=== PATIENT | female | born 1990 | race Caucasian/White ===

== ENCOUNTER → 2019-08-03 10:50 | Outpatient (CLI) | payer BC, SELFPAY ==
--- NOTE | ~2019-08-03 | US_ITS ---
EXAMINATION: US pelvic complete w TV EXAM DATE: 08/03/2019 11:22 INDICATION: Dyspareunia. Painful intercourse, pressure. TECHNIQUE: Pelvic transabdominal and transvaginal sonogram was performed. There are multiple graysca le and Doppler images available for interpretation. There is no prior study for comparison. FINDINGS: Uterus measures 8.2 x 5.2 x 5.1 cm, and is morphologically normal. Endometrial stripe alverto sures 1.3 mm, within normal limits. There is no free pelvic fluid. Right adnexa: The ovary measures 2.4 x 1.8 x 2.6 cm and is morphologically normal. Ovarian vascular f low confirmed. Left adnexa: The ovary measures 3.4 x 2.2 x 3.2 cm and is morphologically normal. Ovarian vascular fl ow confirmed. IMPRESSION: 1. Unremarkable pelvic ultrasound exam. Reviewed, dictated and finalized at location A.
== END ==
PROVIDERS: Visit Provider Obstetrics & Gynecology
DX: N94.10 Unspecified dyspareunia (principal)
CPT/HCPCS: 76830; 76856

== ENCOUNTER 2020-07-03 21:32 | Inpatient (IN) | payer BC, SELFPAY ==
[2020-07-03 22:16] VITALS: BP 107/59; PULSE 91
[2020-07-03 22:31] VITALS: BP 107/63; PULSE 90
[2020-07-03 22:46] VITALS: BP 118/80; PULSE 87
[2020-07-03 23:00] VITALS: BMI 28.5
[2020-07-03 23:01] LABS: Basophils Percent Auto 0.2 % (0.2-1.2); Eosinophils Absolute Auto 0.1 K/mm3 (0-0.3); Eosinophils Percent Auto 0.6 % (0-4.4); Hematocrit 37.3 % (37.0-47.0); Hemoglobin 12.3 g/dL (12.0-15.0); Immature Granulocyte Absolute 0.11 K/mm3 (0.00-0.031); Immature Granulocyte Percent A 0.9 % (0-0.5); Lymphocytes Absolute Auto 2.18 K/mm3 (0.9-3.2); Lymphocytes Percent Auto 17.2 % (18.3-44.2); Mean Corpuscular Hemoglobin 30.8 pg (26-34); Mean Corpuscular Volume 93.5 fl (80-100); Mean Platelet Volume 12.3 fl (7.4-10.4); Monocytes Percent Auto 7.7 % (2.6-8.5); Neutrophils Absolute Auto 9.3 K/mm3 (1.3-6.7); Neutrophils Percent Auto 73.4 % (45.5-73.1); Platelet Count Result 167 k/mm3 (150-375); Red Blood Count 3.99 M/mm3 (4.2-5.4); Red Cell Distribution Width 12.3 % (11.5-14.5); White Blood Count 12.7 K/mm3 (4.5-10.0)
[2020-07-03 23:03] VITALS: TEMP 36.4
[2020-07-03] MEDS: OXYTOCIN 30 UNITS/NS 500 ML 30 UNITS/500 ML BAG 6 UNITS IV CONT (23:03)
[2020-07-03] MEDS: AMPICILLIN 2 GM/NS 100 ML 2 GM/100 ML BAG IVPB (23:05)
[2020-07-03] MEDS: LACTATED RINGERS 1,000 ML 125 ML IV CONT (23:05)
[2020-07-03 23:36] VITALS: BP 96/61; PULSE 75
[2020-07-03 23:46] VITALS: BP 104/65; PULSE 84
--- NOTE | 2020-07-03 23:46 | LDADM ---
This patient, Mireya Reina, was admitted to Labor/Delivery/Recovery 107 on 07/03/20 at 21:32. Plans for labor, pain management and were discussed with patient. Patient/family oriented to hospital policies and general routines including ID bracelet, bed and alarms, visiting hours, pain management, procedures, bathroom and other care routines, personal items, smoking policy, room service/diet and guest tray routines, infant security routines, and visiting hours. Patient/Family are encouraged to report perceived risks to care and to ask questions if they do not understand what they are told or what they should do. See OBIX for further documentation.
[2020-07-04] VITALS (177 sets, daily range): BP systolic 75–144; BP diastolic 39–112; PULSE 63–208; RESP 14–16; TEMP 36.3–37.6; O2SAT 91–100
[2020-07-04] MEDS: LACTATED RINGERS 1,000 ML 125 ML IV CONT ×4 (00:36→09:51)
--- NOTE | 2020-07-04 01:54 | WPDANESEPP ---
Anes - Eval Pre Procedure Procedure: Labor epidural Date/Time: 07/04/20 01:54 Surgeon: Ginette Preop Diagnosis: Abd pain with contractions Pre Op Diagnosis: R/O SROM Patient Data Age: 29 Gender: F Height: 5 ft 3 in Weight: 73 kg Last Vital Signs Temp 97.5 F L 07/04/20 00:59 Pulse 89 07/04/20 01:46 BP 123/81 07/04/20 01:46 Allergies Allergy/AdvReac Type Severity Reaction Status Date / Time No Known Allergies Allergy Verified 06/08/20 12:44 Home Medications Medication Instructions Recorded Confirmed Type prenat.vits,efrain,qow-rbkx-wkeds 1 tablet PO HS 06/08/20 06/08/20 History [ #2] Laboratory Tests 07/03/20 07/03/20 07/03/20 22:51 22:51 22:52 WBC 12.7 K/mm3 H K/mm3 (4.5-10.0) RBC 3.99 M/mm3 L M/mm3 (4.2-5.4) Hgb 12.3 g/dL g/dL (12.0-15.0) Hct 37.3 % % (37.0-47.0) MCV 93.5 fl fl (80-100) MCH 30.8 pg pg (26-34) MCHC 33.0 g/dl g/dl (32-36) RDW 12.3 % % (11.5-14.5) Plt Count 167 k/mm3 k/mm3 (150-375) MPV 12.3 fl H fl (7.4-10.4) Immature Gran % (Auto) 0.9 % H % (0-0.5) Neut % (Auto) 73.4 % H % (45.5-73.1) Lymph % (Auto) 17.2 % L % (18.3-44.2) [place] % (Auto) 7.7 % % (2.6-8.5) Eos % (Auto) 0.6 % % (0-4.4) Baso % (Auto) 0.2 % % (0.2-1.2) Lymph # (Auto) 2.18 K/mm3 K/mm3 (0.9-3.2) [place] # (Auto) 1.0 K/mm3 H K/mm3 (0.1-0.6) Eos # (Auto) 0.1 K/mm3 K/mm3 (0-0.3) Baso # (Auto) 0.0 K/mm3 K/mm3 (0.0-0.1) Abs Immat Gran (auto) 0.11 K/mm3 H K/mm3 (0.00-0.031) Absolute Neuts (auto) 9.3 K/mm3 H K/mm3 (1.3-6.7) Absolute Nucleated RBC 0.0 K/mm3 K/mm3 (0.0-0.012) Nucleated RBC % 0.0 % % (0.0-0.2) RPR Pending Blood Type O Positive Antibody Screen Negative Patient hx anesthesia problems: none Family hx anesthesia problems: none PMFSH Past Medical History Medical History Over weight and not yet delivered Family History Family History Grandparent Parkinson disease Lung cancer Diabetes mellitus Social History Social History Smoking status: Never smoker Substance use: never Spiritual care concerns: No Exam Day of Procedure 07/04/20 01:54 Patient weight: overweight Airway: Mallampati scale class II Neurological: alert and oriented
[2020-07-04] MEDS: AMPICILLIN 1 GM/NS 50 ML 1 GM/50 ML BAG IVPB ×2 (03:10→07:01)
[2020-07-04 08:57] LABS: Rapid Plasma Reagin Non-Reactive (NonReactive)
--- NOTE | 2020-07-04 11:00 | PM.IMHP ---
H&P: HPI History of Present Illness Date/Time: 07/04/20 11:00 pt arrived in labor, pt currently 9 cm and has not progressed in over 3 hours, heart rate elevated and having non repetative decelerations, pt temp 99.4, complicated for LGA, GBS negative Chief Complaint: primary section Review of Systems Review of Systems: All systems reviewed & are unremarkable except as noted in HPI and below PMFSH Past Medical History Medical History Over weight and not yet delivered Family History Family History Grandparent Parkinson disease Lung cancer Diabetes mellitus Social History Social History Smoking status: Never smoker Substance use: never Spiritual care concerns: No Meds Home Medications and Allergies Home Medications Medication Instructions Recorded Confirmed Type prenat.vits,efrain,mtt-xhyy-ydsli 1 tablet PO HS 06/08/20 06/08/20 History [ #2] Allergies Allergy/AdvReac Type Severity Reaction Status Date / Time No Known Allergies Allergy Verified 06/08/20 12:44 Vital Signs Vital Signs - 24 hr 07/03/20 22:16 07/03/20 22:31 07/03/20 22:46 Temperature Pulse Rate 91 90 87 Blood Pressure 107/59 L 107/63 118/80 Pulse Oximetry 07/03/20 23:03 07/03/20 23:36 07/03/20 23:46 Temperature 36.4 C L Pulse Rate 75 84 Blood Pressure 96/61 L 104/65 Pulse Oximetry 07/04/20 00:01 07/04/20 00:16 07/04/20 00:46 Temperature Pulse Rate 74 71 85 Blood Pressure 106/71 105/68 118/82 Pulse Oximetry 07/04/20 00:59 07/04/20 01:01 07/04/20 01:16 Temperature 36.4 C L Pulse Rate 83 86 Blood Pressure 117/85 111/82 Pulse Oximetry 07/04/20 01:43 07/04/20 01:46 07/04/20 01:56 Temperature Pulse Rate 95 89 Blood Pressure 136/78 123/81 Pulse Oximetry 100 07/04/20 01:59 07/04/20 02:01 07/04/20 02:03 Temperature Pulse Rate 115 H 116 H Blood Pressure 122/76 122/77 Pulse Oximetry 100 94 07/04/20 02:04 07/04/20 02:06 07/04/20 02:07 Temperature Pulse Rate 97 98 96 Blood Pressure 126/79 107/77 118/71 Pulse Oximetry 07/04/20 02:08 07/04/20 02:11 07/04/20 02:13 Temperature Pulse Rate 90 Blood Pressure 115/81 Pulse Oximetry 100 100 07/04/20 02:16 07/04/20 02:18 07/04/20 02:21 Temperature Pulse Rate 84 79 79 Blood Pressure 116/69 111/73 113/81 Pulse Oximetry 100 07/04/20 02:23 07/04/20 02:26 07/04/20 02:28 Temperature Pulse Rate 93 84 97 Blood Pressure 101/65 100/72 127/85 Pulse Oximetry 100 100 07/04/20 02:31 07/04/20 02:33 07/04/20 02:36 Temperature Pulse Rate 83 80 78 Blood Pressure 117/74 106/74 116/80 Pulse Oximetry 100 07/04/20 02:37 07/04/20 02:38 07/04/20 02:43 Temperature 36.8 C Pulse Rate Blood Pressure Pulse Oximetry 100 100 07/04/20 02:46 07/04/20 02:48 07/04/20 02:53 Temperature Pulse Rate 76 Blood Pressure 109/87 Pulse Oximetry 100 100 07/04/20 02:58 07/04/20 03:01 07/04/20 03:03 Temperature Pulse Rate 96 Blood Pressure 115/82 Pulse Oximetry 100 100 07/04/20 03:08 07/04/20 03:10 07/04/20 03:15 Temperature Pulse Rate Blood Pressure Pulse Oximetry 100 100 100 07/04/20 03:16 07/04/20 03:20 07/04/20 03:25 Temperature Pulse Rate 91 Blood Pressure 110/74 Pulse Oximetry 100 100 07/04/20 03:30 07/04/20 03:31 07/04/20 03:35 Temperature Pulse Rate 75 Blood Pressure 101/63 Pulse Oximetry 100 100 07/04/20 03:40 07/04/20 03:42 07/04/20 03:46 Temperature Pulse Rate 85 Blood Pressure 97/64 L Pulse Oximetry 100 100 07/04/20 03:47 07/04/20 03:52 07/04/20 03:57 Temperature Pulse Rate Blood Pressure Pulse Oximetry 100 100 100 07/04/20 04:01 07/04/20 04:02 07/04/20 04:06
--- NOTE | 2020-07-04 11:07 | WPDANESEFPP ---
Anes - Eval Final PreProcedure Day of Procedure 07/04/20 11:07 Patient weight: normal Heart: regular rate and rhythm Lungs: clear to auscultation Airway: Mallampati scale class II Neurological: alert and oriented Last oral intake: 2 hours (water) ASA classification: II Emergent: no Anesthetic plan: proceed Anesthesia type and monitoring: regional (existing) epidural and standard monitoring Informed Consent: The patient's anesthetic plan and its attendant risks and benefits were discussed with the patient/family/POA. Questions were solicited and answers provided to the satisfaction of the patient/family/POA.
--- NOTE | 2020-07-04 11:17 | WPDHPUPDATE1 ---
History and Physical Update Update Date/Time: 07/04/20 11:17 History and Physical has been reviewed, including an updated exam of the patient. There are NO changes in the patient's condition. Risks, benefits, and alternatives have been discussed and questions answered. Patient agrees to proceed with procedure. Term IUP with prolonged rupture of membranes, failure to progress at 9cm, decelerations, though overall reassuring, and baseline raising. Afebrile. COnsented for CS for FTP and intolerance of labor. Discussed RBA, questions answered, will proceed.
--- NOTE | 2020-07-04 11:19 | PM.OBPRVD ---
OB - Delivery Note Procedure Delivery date: 07/04/20 Procedure: Primary CS events: Prolonged Rupture of Membrane Intrapartal events: Prolonged Active Phase and Intolerance Route of delivery: Specimen: Yes (placenta) Anesthesia type: Epidural Disposition: floor Complications: none Narrative: The patient was taken to the OR and received spinal anesthesia. She was placed in dorsal supine position with left lateral tilt. SCDs and mayberry were placed. She was prepped and draped in the normal sterile fashion. A Pfannensteil skin incision was made and carried through to the underlying layer of fascia. The fascia was incised in the midline and then extended laterally using Pineda scissors. The muscles were in the midline and the peritoneum was entered bluntly. The peritoneal incision was extended inferiorly and superiorly with care to avoid the bladder. The bladder blade was then inserted, the vesicouterine peritoneum was grasped, incised with Metzenbaum scissors, and a bladder flap created. The bladder blade was reinserted. A low transverse uterine incision was made with a scalpel and extended bluntly. AROM was performed and fluid was noted to be clear. The head was delivered, followed by the remainder of the baby. The baby's oropharynx was suctioned. After 30 seconds, the cord was clamped and cut and the infant was handed off. Cord blood was obtained and the placenta was then removed manually. The uterus was exteriorized. A moist lap sponge was used to curette the endometrium. The uterine incision was then closed with one layer of 0-Vicryl in a running, locking fashion, including an extension 2cm toward the cervix. Good hemostasis was noted. The posterior cul de sac was irrigated with normal saline and cleared of all clot and debris. Uterine atrophy was significant and was treated with pitocin, methergine, hemabate, and tranexamic acid. Tone improved after about 20 minutes. The uterus was returned to the abdomen. Both lateral gutters were then irrigated. The rectus muscles were inspected and found to be hemostatic. The fascia was reapproximated using 0-Vicryl in running fashion. The subcutaneous tissue was irrigated with normal saline and made hemostatic with Bovie electrocautery. The skin was then closed with 4-0 Vicryl in a subcuticular fashion. Steri strips and a bandage were applied. The uterus was evacuated. The patient tolerated the procedure very well. All counts were correct. She was taken to the recovery room in good condition. [place] Baby Date of : 07/04/20 Time of : 11:48 Weeks of gestation at delivery: 39 gender: Male Weight (pounds): 8 Weight (ounces): 6 presentation: vertex score one minute: 6 score five minutes: 9
--- NOTE | 2020-07-04 13:15 | PC.NURSE ---
RN requested assist with feeding, reporting makes eager attempts and unable to maintain latch. Reviewed infant feeding cues. Assisted with to breast. Reviewed positioning/alignment in cross cradle, holding breast in ?U? hold and guided asymmetrical latch on. Several attempts before infant was able to latch correctly. nursed eagerly, with steady draws and frequent swallowing noted. Reviewed signs of a correct latch, effective nursing and suck swallow ratio. Infant was able to maintain latch without discomfort to mother. Suggested mother stimulate while feeding to increase stimulate, increase intake and to assist with maintaining deep latch.
[2020-07-04 14:34] LABS: Hematocrit 34.9 % (37.0-47.0); Hemoglobin 11.7 g/dL (12.0-15.0); Mean Corpuscular HGB Conc 33.5 g/dl (32-36); Mean Corpuscular Hemoglobin 30.8 pg (26-34); Mean Corpuscular Volume 91.8 fl (80-100); Mean Platelet Volume 12.2 fl (7.4-10.4); Platelet Count Result 154 k/mm3 (150-375); Red Cell Distribution Width 12.3 % (11.5-14.5); White Blood Count 30.4 K/mm3 (4.5-10.0)
[2020-07-04 15:03] LABS: Band Neutrophils Percent 16 % (0-6); Lymphocytes Absolute Manual 1.52 K/mm3 (1.1-4.5); Monocytes Percent Manual 1 % (3-9); Neutrophils Absolute Manual 28.57 K/mm3 (1.7-7.2); Neutrophils Percent Manual 78 % (46-73); Platelet Estimate Adequate (Adequate); Total Cells Counted 100
--- NOTE | 2020-07-04 15:04 | PC.NURSE ---
Patient transferred to post room #288 per stretcher from labor and delivery. Support person present. Oriented to unit, room, information board, rooming in, admission packet and security measures. Patient verbalizes understanding.
[2020-07-04] MEDS: DEXTROSE 5%/0.45% SOD CHL 1,000 ML 125 ML IV CONT (16:15)
[2020-07-04] MEDS: KETOROLAC 30 MG/ML VIAL (*BKC) IV PUSH ×2 (16:15→22:19)
[2020-07-05 05:00] VITALS: BP 101/55; PULSE 100; RESP 16; TEMP 36.5; O2SAT 99
[2020-07-05] MEDS: IBUPROFEN 600 MG TABLET PO ×3 (05:09→17:59)
[2020-07-05] MEDS: HYDROcodone/acetaminophen (*CRX) 5-325 MG TABLET 1 TAB PO ×4 (05:09→20:35)
[2020-07-05 05:50] LABS: Basophils Percent Auto 0.2 % (0.2-1.2); Hematocrit 27.5 % (37.0-47.0); Hemoglobin 9.1 g/dL (12.0-15.0); Immature Granulocyte Absolute 0.14 K/mm3 (0.00-0.031); Immature Granulocyte Percent A 0.7 % (0-0.5); Lymphocytes Absolute Auto 1.06 K/mm3 (0.9-3.2); Lymphocytes Percent Auto 5.3 % (18.3-44.2); Mean Corpuscular HGB Conc 33.1 g/dl (32-36); Mean Corpuscular Hemoglobin 31.2 pg (26-34); Mean Corpuscular Volume 94.2 fl (80-100); Mean Platelet Volume 12.4 fl (7.4-10.4); Monocytes Absolute Auto 0.9 K/mm3 (0.1-0.6); Monocytes Percent Auto 4.5 % (2.6-8.5); Neutrophils Absolute Auto 17.9 K/mm3 (1.3-6.7); Neutrophils Percent Auto 89.3 % (45.5-73.1); Platelet Count Result 111 k/mm3 (150-375); Red Blood Count 2.92 M/mm3 (4.2-5.4); Red Cell Distribution Width 12.6 % (11.5-14.5)
[2020-07-05 07:40] VITALS: BP 94/54; PULSE 94; RESP 18; TEMP 36.3; O2SAT 95
--- NOTE | 2020-07-05 07:42 | PM.OBPNVD ---
OB - PN: Subj Subjective Date/time seen: 07/05/20 07:42 Patient comments: no complaints, pain well controlled, tolerating diet and flatus present [place] baby status: doing well OB - PN: Obj Data Labs CBC & Chem 7: 07/05/20 05:01 Labs: Laboratory Results - last 24 hr 07/03/20 07/04/20 07/05/20 22:51 14:21 05:01 WBC 30.4 H 20.0 H RBC 3.80 L 2.92 L Hgb 11.7 L 9.1 L Hct 34.9 L 27.5 L MCV 91.8 94.2 MCH 30.8 31.2 MCHC 33.5 33.1 RDW 12.3 12.6 Plt Count 154 111 L MPV 12.2 H 12.4 H Immature Gran % (Auto) Not Reportable 0.7 H Neut % (Auto) Not Reportable 89.3 H Lymph % (Auto) Not Reportable 5.3 L [place] % (Auto) Not Reportable 4.5 Eos % (Auto) Not Reportable 0.0 Baso % (Auto) Not Reportable 0.2 Lymph # (Auto) Not Reportable 1.06 [place] # (Auto) Not Reportable 0.9 H Eos # (Auto) Not Reportable 0.0 Baso # (Auto) Not Reportable 0.0 Abs Immat Gran (auto) Not Reportable 0.14 H Absolute Neuts (auto) Not Reportable 17.9 H Absolute Nucleated RBC Not Reportable 0.0 Total Counted 100 Neutrophils % (Manual) 78 H Band Neutrophils % 16 H Lymphocytes % (Manual) 5.0 L Monocytes % (Manual) 1 L Nucleated RBC % Not Reportable 0.0 Abs Neuts (Manual) 28.57 H Abs Lymphs (Manual) 1.52 Abs Monocytes (Manual) 0.30 Platelet Estimate Adequate RPR Non-reactive OB - PN A/P Plan day: 1 Plan: routine care Time Spent With Patient Time: Total time spent is greater than 50% in coordination of care (as documented) at patient's floor/unit and/or counseling patient: Time with patient: less than 15 minutes Review of Systems Review of Systems: All systems reviewed & are unremarkable except as noted in HPI and below Exam Narrative: Exam Narrative: Fundus firm. Vaginal flow controlled. Incision dry and intact. Negative homans. No redness, warmth, or pain of lower ext. Const: General: comfortable Chest: Breast/axilla inspection: normal inspection of the breasts Resp: Effort & Inspection: normal respiratory effort Auscultation: clear to auscultation bilaterally Cardio: Rate: regular rate GI: GI Palp: Yes Soft to palpation Psych: Appearance: grossly normal Affect: normal affect Attitude: cooperative Thought content: Yes Normal thought content present Judgement: Good judgement present (Psych)
[2020-07-05] MEDS: MULTIVIT/MIN/PREN/FOL AC/IRON TABLET 1 TAB PO (09:13)
[2020-07-05] MEDS: POLYSACCHARIDE IRON COMPLEX 150 MG CAPSULE PO ×2 (09:13→17:59)
[2020-07-05] MEDS: DOCUSATE SODIUM 100 MG CAPSULE PO ×2 (09:13→17:59)
[2020-07-05] MEDS: LANOLIN (LANSINOH) 7.5 GM CREAM 1 APPLIC TOPICAL (09:15)
--- NOTE | 2020-07-05 11:50 | PC.NURSE ---
Mother called out for assist with feeding. Mother reports she has been given a nipple shield and latch assist to assist with latching. Mother has initiated pumping during the night. Mother has latched a few feedings without nipple shield. Discussed nipple shield precautions and possible complications. Reviewed application and cleaning of shield. Patient able to return demonstration on proper application of shield. Discussed the need for regular pumping if infant continues to nurse with the shield. Patient verbalizes understanding. Reviewed feeding cues, frequencies, duration of feedings, feeding elimination flow sheet, and signs of adequate intake. Demonstrated stimulation techniques to wake infant for feeding. Assisted with infant to breast with out shield. Reviewed positioning/alignment in cross cradle, holding breast in ?U? hold and guided asymmetrical latch on. Infant was unable to latch correctly or draw nipple in deeply. With shield in place, infant was able to latch correctly. nursed eagerly, with steady draws and occasional swallowing noted. Reviewed signs of a correct latch, effective nursing and suck swallow ratio. would slip to shallow latch, mother reports tenderness. Demonstrated how to adjust latch more deeply while feeding. Mother reports she can feel change in latch and has no tenderness. Nipple care reviewed of lanolin after feedings, warm compresses as needed. Suggested mother stimulate while feeding to increase stimulate, increase intake and to assist with maintaining deep latch. Instructed mother to call out for RN assistance if she is unable to latch infant for feeding or she has discomfort with nursing. Instructed feeding should be initiated three hours from start of last feeding or if feeding cues are noted before. Mother voiced understanding of information shared. Mother will finish with pumping bor 10 minutes.
--- NOTE | 2020-07-05 15:08 | PC.NURSE ---
1126 Pt was given a [place] 5mg at 0913, but called nurse in that she did not take it at that time. She took it now at 1126 with Ibuprofen.
--- NOTE | 2020-07-05 15:39 | WPDANLDPN2 ---
Anes-Prog Note L&D Date/Time: 07/05/20 15:39 Comfortable throughout: labor and section Neuraxial method: epidural Epidural/Spinal procedure site: clean & non-tender Neuro status: Neuro function grossly intact. Cardiovascular status: normal Respiratory status: normal Airway patency: baseline Mental status: baseline Post-Op hydration status: normal Vital Signs: Last Vital Signs Temp 36.3 C L 07/05/20 07:40 Pulse 94 07/05/20 07:40 Resp 18 07/05/20 07:40 BP 94/54 L 07/05/20 07:40 Pulse Ox 95 07/05/20 07:40 Pain score (VAS): 0/10/ Patient resting in bed at time of assessment, appears comfortable. Support person at bedside. RN at bedside. I/O: Intake & Output 07/04/20 07/05/20 07/05/20 23:59 07:59 15:59 Intake Total 300 750 Output Total 900 1750 1800 Balance -600 -1000 -1800 Post-procedural complaints: none Patient feedback: Patient satisfied with anesthetic care.
--- NOTE | 2020-07-05 15:40 | WPDANLDNPN2 ---
Anes-Prog Note L&D-Neuraxial Date/Time: 07/05/20 15:40 Neuraxial medications: epidural PF morphine Opiod-related complaints: none Patient feedback: Patient satisfied with post-operative pain management.
[2020-07-05 20:00] VITALS: BP 100/66; PULSE 102; RESP 18; TEMP 36.8; O2SAT 100
[2020-07-06] MEDS: HYDROcodone/acetaminophen (*CRX) 5-325 MG TABLET 1 TAB PO ×5 (00:13→21:38)
[2020-07-06] MEDS: IBUPROFEN 600 MG TABLET PO ×4 (00:13→21:39)
--- NOTE | 2020-07-06 07:54 | PM.OBPNVD ---
OB - PN: Subj Subjective Date/time seen: 07/06/20 07:54 Patient comments: no complaints, pain well controlled, incisional pain, tolerating diet and flatus present OB - PN: Obj Data Labs CBC & Chem 7: 07/05/20 05:01 OB - PN A/P Plan day: 2 Plan: routine care Comments: POD#2 LTCS - no problems, Time Spent With Patient Time: Total time spent is greater than 50% in coordination of care (as documented) at patient's floor/unit and/or counseling patient: Exam Const: General: comfortable, no acute distress and alert Resp: Effort & Inspection: normal respiratory effort Auscultation: no crackles, no rales and no rhonchi Cardio: Rate: regular rate Heart sounds: no click, no murmurs and no rubs GI: Inspection: non-distended GI Palp: No Tenderness to palpation present (GI) Auscultation: normal bowel sounds Other: Incision - CDI Extrem: General: normal to inspection, no pedal edema and no calf tenderness
[2020-07-06 08:15] VITALS: BP 108/60; PULSE 87; RESP 18; TEMP 36.5; O2SAT 97
[2020-07-06] MEDS: POLYSACCHARIDE IRON COMPLEX 150 MG CAPSULE PO ×2 (08:21→18:02)
[2020-07-06] MEDS: MULTIVIT/MIN/PREN/FOL AC/IRON TABLET 1 TAB PO (08:21)
[2020-07-06] MEDS: DOCUSATE SODIUM 100 MG CAPSULE PO ×2 (08:22→18:01)
--- NOTE | 2020-07-06 08:30 | PC.NURSE ---
Consult with pt., mother reports she has been given a nipple shield and latch assist to aid in latching. Mother used the shield for most feedings during the night. Mother is attempting without shield. Infant is sleepy and making weak attempts to latch. Suggested to use shield. Advised mother should use shield if she is not able to latch comfortably without or if will not latch. Reviewed application and cleaning of shield. Discussed nipple shield precautions and possible complications. Patient able to return demonstration on proper application of shield. Discussed the need to initiate pumping if infant continues to nurse with the shield. Patient verbalizes understanding. With shield in place infant was able to latch correctly. Infant nursed eagerly, with steady draws and frequent swallowing noted. Reviewed signs of a correct latch, effective nursing and suck swallow ratio. would slip to shallow latch, mother reports tenderness. Demonstrated how to adjust latch more deeply while feeding. Mother reports she can feel change in latch and has no tenderness. Nipple care reviewed of lanolin after feedings, warm compresses as needed. Suggested mother stimulate while feeding to increase stimulate, increase intake and to assist with maintaining deep latch. Parents questioned if infant was getting enough reviewed signs of adequate intake with output, weight and jaundice. Advised is WNL of all at this time. Mother questioned if he should be supplemented. Discussed it is their choice and infant could be supplemented 15-20 mls after and mother should pump after each feeding using shield. Parents wish to initiate supplementation until mother's milk is in. Instructed mother to call out for RN assistance if she is unable to latch infant for feeding or she has discomfort with nursing. Instructed feeding should be initiated three hours from start of last feeding or if feeding cues are noted before. Mother voiced understanding of information shared.
--- NOTE | 2020-07-06 12:15 | PC.NURSE ---
Upon entering mother has latched deeply in football without nipple shield. Mother called out for assist with feeding. Reviewed positioning/alignment in football, holding breast in ?CU? hold and guided asymmetrical latch on. nursed eagerly, with steady draws and frequent swallowing noted. Reviewed signs of a correct latch, effective nursing and suck swallow ratio. Infant would slip to shallow latch, mother reports tenderness. Demonstrated how to adjust latch more deeply while feeding. Mother reports she can feel change in latch and has no tenderness. Nipple care reviewed of lanolin after feedings, warm compresses and as needed. Suggested mother stimulate while feeding to increase stimulate, increase intake and to assist with maintaining deep latch. Instructed mother to call out for RN assistance if she is unable to latch for feeding or she has discomfort with nursing. Instructed feeding should be initiated three hours from start of last feeding or if feeding cues are noted before. Mother voiced understanding of information shared.
[2020-07-06 19:00] VITALS: BP 98/60; PULSE 62; RESP 18; TEMP 36.7; O2SAT 99
[2020-07-07] MEDS: HYDROcodone/acetaminophen (*CRX) 5-325 MG TABLET 1 TAB PO ×3 (05:00→14:07)
[2020-07-07] MEDS: IBUPROFEN 600 MG TABLET PO ×2 (05:01→14:08)
[2020-07-07 08:00] VITALS: BP 126/84; BP 98/60; PULSE 62; PULSE 92; RESP 18; TEMP 36.7; TEMP 37.6; O2SAT 99
[2020-07-07] MEDS: DOCUSATE SODIUM 100 MG CAPSULE PO (09:38)
[2020-07-07] MEDS: MULTIVIT/MIN/PREN/FOL AC/IRON TABLET 1 TAB PO (09:38)
[2020-07-07] MEDS: POLYSACCHARIDE IRON COMPLEX 150 MG CAPSULE PO (09:38)
[2020-07-07] MEDS: SIMETHICONE 80 MG TAB.CHEW PO (09:38)
[2020-07-07] MEDS: LANOLIN (LANSINOH) 7.5 GM CREAM 1 APPLIC TOPICAL (09:39)
--- NOTE | 2020-07-07 10:53 | PM.OBPNVD ---
OB - PN: Subj Subjective Date/time seen: 07/07/20 10:53 Patient comments: no complaints, pain well controlled, tolerating diet and flatus present baby status: doing well OB - PN: Obj Data Labs CBC & Chem 7: 07/05/20 05:01 OB - PN A/P Plan day: 4 Plan: routine care and discharge home (Follow up in 1 week) Comments: Await cbc results before discharge. Time Spent With Patient Time: Total time spent is greater than 50% in coordination of care (as documented) at patient's floor/unit and/or counseling patient: Time with patient: less than 15 minutes Review of Systems Review of Systems: All systems reviewed & are unremarkable except as noted in HPI and below Exam Narrative: Exam Narrative: Fundus firm. Vaginal flow controlled. Incision dry and intact. Negative homans. No redness, warmth, or pain of lower ext. Const: General: comfortable Chest: Breast/axilla inspection: normal inspection of the breasts Resp: Effort & Inspection: normal respiratory effort Auscultation: clear to auscultation bilaterally Cardio: Rate: regular rate GI: GI Palp: Yes Soft to palpation Psych: Appearance: grossly normal Affect: normal affect Attitude: cooperative Thought content: Yes Normal thought content present Judgement: Good judgement present (Psych)
[2020-07-07 11:00] VITALS: TEMP 37.6
[2020-07-07 12:44] LABS: Hematocrit 26.6 % (37.0-47.0); Hemoglobin 8.5 g/dL (12.0-15.0); Mean Corpuscular Hemoglobin 30.5 pg (26-34); Mean Corpuscular Volume 95.3 fl (80-100); Mean Platelet Volume 12.1 fl (7.4-10.4); Platelet Count Result 158 k/mm3 (150-375); Red Blood Count 2.79 M/mm3 (4.2-5.4); Red Cell Distribution Width 12.3 % (11.5-14.5); White Blood Count 13.6 K/mm3 (4.5-10.0)
--- NOTE | 2020-07-07 14:00 | PC.NURSE ---
Self care and infant care discharge instructions given to pt. including follow up visit date and time. Pt. verbalized understanding. No questions or concerns voiced. Very pleasant. at side.
--- NOTE | 2020-07-07 17:02 | PC.NURSE ---
Patient viewed the discharge video Mother & Baby Care, The First Two Weeks . Patient was given the opportunity and encouraged to ask questions. Patient verbalized understanding of information shared and has been given the mother/baby guide for home reference.
[2020-07-09 14:55] VITALS: BP 125/78; PULSE 101; RESP 16; TEMP 37.2; O2SAT 98
--- NOTE | 2020-08-03 07:48 | PM.OBDSVD ---
DS: Admitting Diagnosis Admitting Diagnosis Admitting Diagnosis: term iUP DS: Discharge Diagnosis Discharge Diagnosis (1) delivery delivered: Code(s): O82 - Encounter for delivery without indication Status: Acute OB - DS: Summary OB Procedures : Ultrasound OB Procedures Intrapartum: OB Procedures: : None Peripartum Data Infant Delivery Method: Section Procedures: Procedures Operation Date: 07/04/20 11:15 Actual Procedure Side Surgeon p Section Vicky Cha MD complications: none Status at Discharge Functional status at discharge: independent ambulation Time Spent with Patient Time attestation: Total time spent providing and/or coordinating discharge services: Exam Narrative: Exam Narrative: NAD abdomen soft, appropriately tender, incision CDI DS: Data Data Completed and Pending Completed studies during hospitalization: Pending at discharge 07/04/20 15:37 Surgical [PTH] Routine Discharge Plan Discharge Attending physician on discharge: Vicky Cha Consulting providers: Shiraz Marcos ; Vicky Cha ; Echo Chaidez ; Silva Mckeon ; Óscar Amaya Discharging Clinician: Silva Mckeon Patient Disposition: Home, Self-Care Activity: pelvic rest Diet: as tolerated Wound Care Instructions: follow printed instructions Discharge Instructions: Education: Mom and Baby Guide Given to: Mother Follow-Up: Call your delivering provider's office for an appointment to be seen in: 1 Week Mom and baby should come to the [facility] for the follow-up appointment. Appointment Date/Time: July 09, 2020 at 2:30 pm What to expect at your follow-up visit: Blood Pressure Check Physical Assessment Call [phone] if you are unable to keep your appointment time. BREAST CARE: * Wear a snug supportive bra. * For engorgement discomfort: Breast Feeding: * Apply warm moist washcloths * Express milk as needed to relieve engorgement * Wear loose clothing Bottle Feeding: * May apply ice packs * For sore nipples: * Identify correct latch-on * Apply warm moist washcloths before and after nursing * Air dry nipples after nursing * May apply Lansinoh cream to nipples ABDOMINAL INCISION: (if applicable) * Allow incision to air dry * Do NOT use lotions for powders on your incision * When showering, allow soap and water to run over the incision, but do not wash incision EPISIOTOMY/PERINEAL CARE: * Until bleeding stops, use your shari bottle after urinating * Change your pad frequently throughout the day * You may take sitz baths several times a day (fill your bathtub with warm water and soak for 20 minutes.) Do NOT bathe in the water * No tub baths until seen by your physician - You may shower ACTIVITY: * Rest as much as possible. * Do not exercise or lift anything heavier than your baby (such as laundry or other children.) * Avoid stairs or driving as much as possible. * Do not put anything into the vagina. No douching, tampons, or sexual activity until seen by physician. NOTIFY PHYSICIAN IF YOU HAVE ANY QUESTIONS OR IF ANY OF THE FOLLOWING SYMPTOMS OCCUR: * If your incision becomes red, swollen, or more painful than what you have experienced in the hospital. * If your vaginal bleeding becomes foul smelling. * If your vaginal bleeding becomes more heavy than a period or if your bleeding changes from pink to bright red. However, you may pass an occasional walnut-sized clot once or twice for the first week . * If you experience a sharp, shooting pain in you calves. * If you discover a hard, reddened area on your breast or if you experience flu-like symptoms. DIET: * Eat regular, well-balanced meals. * Drink plenty of fluids daily. If , drink to thirst
== END 2020-07-07 14:16 | disposition home or self-care (01) | DRG 788 ==
LOC: ANHLDR 22:37 → ANHOB2 07-04 15:24
PROVIDERS: Advanced Practice Midwife; Obstetrics & Gynecology; Admitting Provider Obstetrics & Gynecology; Visit Provider Obstetrics & Gynecology
PROC: 10D00Z1 Extraction of Products of Conception, Low, Open Approach (ICD-10-PCS; CPT 59514; principal; 2020-07-04 11:15)
DX: O76 Abnormality in fetal heart rate and rhythm complicating labor and delivery (principal); O42.92 Full-term premature rupture of membranes, unspecified as to length of time between rupture and onset of labor; Z3A.39 39 weeks gestation of pregnancy; Z37.0 Single live birth; O26.23 Pregnancy care for patient with recurrent pregnancy loss, third trimester
CPT/HCPCS: 36415; 85025; 85027; 86592; 86850; 86900; 86901; 88307; A9270; J0131; J0290; J1885; J2210; J2274; J2405; J2590; J2795; J7120

== ENCOUNTER 2020-07-16 13:47 | Outpatient (RCR) | payer BC, SELFPAY ==
--- NOTE | 2020-07-17 11:40 | PC.NURSE ---
Pt seen on 07/17/2011 IN 1310 OUT 1405 HISTORY: Pt. delivered at [facility] at 39 weeks. had no complications after delivery. Mother had complications after delivery of a large EBL of >1000mls . is now 12 days old. Infant appears to be well cared for. Infant has been seen by ICP as scheduled. Infant last seen by ICP at 1 week. Mother reports: Mother began supplementing within a few feedings of due to pain. Mother continued supplementation by choice. Infant is eagerly latching without difficulties or discomfort. Mother began pumping to assist with milk supply. Mother currently puts infant to one breast per feeding and then supplement 2 oz, 1 oz EBM 1 oz formula. Infant feeds every 2.5 to 3 hours during the day and every 4 hours at night. Mother will pump up to 2 oz per session and will give to infant as part of supplement. Mother states now requires more per feeding and is finding it difficult to find time to pump and feels milk supply may be decreasing within the last days. Mother has not pumped as regularly previous days. Mother states she is considering switching to formula. Mother wishes: Clarification on feeding questions. Currently at 6 wets per day and 4 yellow seedy stools per day. weight: 8#6 Discharge weight: 7#14 Last Weight: 8#4 ICP Today: 8#9 OBSERVATION: Mother is able to independently latch correctly with a deep latch. Infant will eagerly latch nursing with long draws and freq. swallowing noted. Infant is able to maintain latch without discomfort to mother. Suggested mother allow to nurse both breasts to empty then supplement formula to infant satisfaction. Discussed on both breasts per feeding may naturally increase supply and will receive as much breastmilk available per feeding. Mother will then supplement bottle after. Reviewed mother's > EBL may impact milk supply and impact increasing supply as requires. Mother will discontinue with pumping and increase formula as requires, per her choice. PLAN: Mother will follow above feeding plan . Mother will call with further questions or concerns. I
== END 2020-10-14 23:59 | disposition home or self-care (01) ==
LOC: ANHOBOP 13:47
PROVIDERS: Visit Provider Pediatrics
DX: Z39.1 Encounter for care and examination of lactating mother (principal)
CPT/HCPCS: 99212; G0463

== ENCOUNTER → 2022-01-14 08:19 | Outpatient (CLI) | payer OTHER, SELFPAY ==
--- NOTE | ~2022-01-14 | US_ITS ---
EXAMINATION: US breast BI limited HISTORY: Palpable lumps in the upper outer quadrant of the right breast and lower outer left breast TECHNIQUE: Limited bilateral breast ultrasound was performed. FINDINGS: There is a 6 mm x 3 mm oval, circumscribed, parallel, hypoechoic mass with no posterior fea tures or internal vascularity at the 10:00 location 5 cm from the nipple in the right breast. There i s a 7 mm x 5 mm oval, circumscribed, parallel, hypoechoic mass with no posterior features or internal vascularity at the 6:00 location 1 cm from the nipple in the left breast. IMPRESSION: Probably benign bilateral breast masses. Follow-up targeted bilateral breast ultrasound in six months is recommended. BI-RADS category 3, probably benign findings. Reviewed, dictated and finalized at location A. GER AUTO IMPRESSION: Probably benign bilateral breast masses. Follow-up targeted bilateral breast ul trasound in six months is recommended. BI-RADS category 3, probably benign findings.
== END ==
PROVIDERS: PCP Nurse Practitioner; Visit Provider Nurse Practitioner
DX: N63.0 Unspecified lump in unspecified breast (principal); R92.8 Other abnormal and inconclusive findings on diagnostic imaging of breast
CPT/HCPCS: 76642

== ENCOUNTER 2022-03-08 10:47 | Outpatient (CLI) | payer OTHER, SELFPAY ==
[2022-03-12 21:12] LABS: Progesterone 20.1 ng/mL (***)
== END 2022-03-08 10:48 | disposition home or self-care (01) ==
LOC: ANHLAB 10:50
PROVIDERS: PCP Obstetrics & Gynecology; Visit Provider Advanced Practice Midwife
DX: Z31.9 Encounter for procreative management, unspecified (principal)
CPT/HCPCS: 36415; 84144

== ENCOUNTER 2022-03-20 11:24 | Outpatient (CLI) | payer OTHER, SELFPAY ==
--- NOTE | ~2022-03-20 | XR_ITS ---
EXAMINATION: XR hysterosalpingogram DATE: 03/20/2022 13:05 INDICATION: Infertility. TECHNIQUE: Fluoroscopy was performed by the radiologist during contrast infusion into the endometrial cavity of the uterus by the primary physician. Fluoroscopy exposure time was 0.5 minutes. The total number of images was 9. FINDINGS: The intrauterine cavity is normal in morphology. The fallopian tubes are normal. There is n ormal free intraperitoneal spillage of contrast on either side. IMPRESSION: 1. Normal hysterosalpingogram. Reviewed, dictated and finalized at location A. NG MANAGER
[2022-03-20 12:30] LABS: Beta HCG Quantitative < 2.39 mIU/ML
--- NOTE | 2022-03-20 13:05 | W.PM.PROC2 ---
Procedure Note - Detailed Date of Procedure 03/20/22 Pre-op Diagnosis infertility/[id number] Post-op Diagnosis Same Procedure Performed Hysterosalpingogram Surgeon Trevor Peng MD Anesthesia None Indications unexplained infertility Findings normal hysterosalpingogram Description of Procedure the patient was placed on the fluoroscopy table. A speculum was placed in the vagina. Cervix was grasped with a tenaculum. The catheter was placed the uterine cavity and the bulb was inflated. The speculum was removed with the angiocath still placed in the intrauterine cavity. Dye was then removed. The catheter. Fluoroscopic images obtained this process. Patient experienced some moderate to severe discomfort. The balloon of the catheter was deflated and the catheter was removed while the images were being obtained. The procedure was terminated. Patient tolerated the procedure well. There were no complications. Estimated Blood Loss 0 Complications No immediate complications Condition Stable Disposition Other
== END 2022-03-20 11:25 | disposition home or self-care (01) ==
PROVIDERS: PCP Obstetrics & Gynecology; Visit Provider Obstetrics & Gynecology
DX: Z01.89 Encounter for other specified special examinations (principal)
CPT/HCPCS: 36415; 58340; 74740; 84702; Q9966

== ENCOUNTER 2022-06-23 17:14 | Outpatient (CLI) | payer OTHER, SELFPAY ==
[2022-06-23 19:20] LABS: Beta HCG Quantitative 120.43 mIU/ML
[2022-06-27 05:12] LABS: Progesterone 66.8 ng/mL (***)
== END 2022-06-23 17:15 | disposition home or self-care (01) ==
LOC: ANHLAB 17:16
PROVIDERS: PCP Obstetrics & Gynecology; Visit Provider Obstetrics & Gynecology
DX: Z32.01 Encounter for pregnancy test, result positive (principal)
CPT/HCPCS: 36415; 84144; 84702

== ENCOUNTER 2022-06-25 16:53 | Outpatient (CLI) | payer OTHER, SELFPAY ==
[2022-06-25 17:34] LABS: Beta HCG Quantitative 232.56 mIU/ML
== END 2022-06-25 16:54 | disposition home or self-care (01) ==
LOC: ANHLAB 16:55
PROVIDERS: PCP Obstetrics & Gynecology; Visit Provider Obstetrics & Gynecology
DX: N91.2 Amenorrhea, unspecified (principal)
CPT/HCPCS: 36415; 84702